=== PATIENT | female | born 1970 | race Caucasian/White ===

== ENCOUNTER 2018-05-23 11:22 | Inpatient (IN) | payer MEDICAID ==
[~2018-05-23] VITALS: Ht 152.4 cm; Wt 104.3 kg
[~2018-05-23 11:22] MED LIST: ACETAMINOPHEN-1 EAC1 ORAL; LEVAQUIN500 MG ORAL; METRONIDAZOLE500 MG ORAL; NKM; TRAMADOL HCL50 MG ORAL
[2018-05-23 11:40] VITALS: BP 149/86
[2018-05-23] MEDS ORDERED: Sodium Chloride 500ML 500 ML IV ONE (11:40)
[2018-05-23] MEDS ORDERED: Morphine Sulfate 4mg/ml Inj (IV/IM USE ONLY) IVP ONE (11:45)
[2018-05-23] MEDS ORDERED: Isovue-300 100ml vial INJ PRN (11:45)
[2018-05-23 12:07] LABS: APPEARANCE,URINE CLOUDY; BILIRUBIN, URINE NEGATIVE (NEGATIVE); COLOR,URINE PALE YELLOW; GLUCOSE, URINE (UA) NEGATIVE (NEGATIVE); KETONES,URINE NEGATIVE (NEGATIVE); LEUKOCYTE ESTERASE ,URINE 3+ (NEGATIVE); NITRITE,URINE NEGATIVE (NEGATIVE); PH,URINE 6 (4.5-8.0); PROTEIN,URINE 4+ (NEGATIVE); UROBILINOGEN,URINE NORMAL MG/DL (0.0-1.0)
[2018-05-23 12:08] LABS: EOSINOPHILS % (AUTO) 1.9 % (0.0-3.0); HEMATOCRIT 37.4 % (37.0-47.0); HEMOGLOBIN 11.9 G/DL (12.0-16.0); LYMPHOCYTES % (AUTO) 26.1 % (20.0-45.0); MEAN CORPUSCULAR VOLUME 76 FL (80-99); MONOCYTES % (AUTO) 6.2 % (1.0-10.0); NEUTROPHILS % (AUTO) 64.8 % (45.0-75.0); PLATELET COUNT 467 K/UL (150-450); RED BLOOD COUNT 4.89 M/UL (4.20-5.40); RED CELL DISTRIBUTION WIDTH 15.1 % (11.6-14.8); WHITE BLOOD COUNT 7.4 K/UL (4.8-10.8)
[2018-05-23 12:18] LABS: ANION GAP 7 mmol/L (5-15); BLOOD UREA NITROGEN 20 mg/dL (7-18); CARBON DIOXIDE 26 MMOL/L (21-32); CHLORIDE 103 MMOL/L (98-107); POTASSIUM 4.4 MMOL/L (3.5-5.1); SODIUM 136 MMOL/L (136-145)
[2018-05-23 12:26] LABS: ALANINE AMINOTRANSFERASE 16 U/L (12-78); ALBUMIN 2.5 G/DL (3.4-5.0); ALBUMIN/GLOBULIN RATIO 0.4 (1.0-2.7); ALKALINE PHOSPHATASE 104 U/L (46-116); ASPARTATE AMINO TRANSFERASE 17 U/L (15-37); BILIRUBIN,TOTAL < 0.1 MG/DL (0.2-1.0)
[2018-05-23] MEDS ORDERED: cefTRIAXone 1 GM in NS 55 ML IVPB ONE (12:45)
[2018-05-23 13:40] VITALS: BP 144/74
--- NOTE | 2018-05-23 14:39 | Emergency Room Report ---
History of Present Illness General Chief Complaint: Abdominal Pain Source: Patient Present Illness HPI 48-year-old female presents ED for evaluation. Patient states she is having lower abdominal pain which started 2 days ago. Sharp, 8 out of 10, localized left lower quadrant. Also complaining of dysuria. History of spina bifida and is wheelchair-bound. Has neurogenic bladder and has to self catheterize. Has had frequent urinary infections in the past. Denies fevers or chills. Denies nausea or vomiting. No other aggravating relieving factors. Denies any other associated symptoms Allergies: Coded Allergies: PENICILLINS (Unverified Allergy, Unknown, 02/07/16) Tolerates cefazolin, ceftriaxone, cefepime SULFAMETHOXAZOLE (Unverified Allergy, Unknown, 05/04/14) TETRACYCLINES (Unverified Allergy, Unknown, 05/04/14) TRIMETHOPRIM (Unverified Allergy, Unknown, 05/04/14) Patient History Past Medical History: other - spina bifida Past Surgical History: other - foot amputation Pertinent Family History: none Social History: Denies: smoking, alcohol use, drug use Now: No Immunizations: UTD Reviewed Nursing Documentation: PMH: Agreed; PSxH: Agreed Nursing Documentation-PMH Past Medical History: No History, Except For Hx Cardiac Problems: No Hx Cancer: No Hx Neurological Problems: No Review of Systems All Other Systems: negative except mentioned in HPI Physical Exam Vital Signs Date Time Temp Pulse Resp B/P (MAP) Pulse Ox O2 Delivery O2 Flow Rate FiO2 05/23/18 11:33 97.5 85 20 149/86 100 Room Air Sp02 EP Interpretation: reviewed, normal General Appearance: no apparent distress, alert, GCS 15, non-toxic, obese Head: normocephalic Eyes: bilateral eye normal inspection, bilateral eye PERRL ENT: normal ENT inspection Neck: normal inspection Respiratory: chest non-tender, lungs clear, normal breath sounds, speaking full sentences Cardiovascular #1: regular rate, rhythm, no edema Gastrointestinal: normal bowel sounds, soft, non-distended, no guarding, no rebound, tenderness - LLQ Rectal: deferred Genitourinary: no CVA tenderness Musculoskeletal: back normal Neurologic: alert, oriented x3, responsive, motor strength/tone normal, sensory intact, speech normal Psychiatric: normal inspection Skin: normal inspection Lymphatic: normal inspection Medical Decision Making Diagnostic Impression: Primary Impression: Pyelonephritis ER Course Hospital Course 48 yo F presents with dysuria. h/o self catheterization, LLQ pain Differential diagnoses include: UTI, cystitis, pyelonephritis Clinical course Patient placed on stretcher. After initial history and physical I ordered UA, labs, IV fluids, pain meds, CT labs - no leukocytosis noted, hb/hematocrit stable, electrolytes okay, UA grossly positive CT A/P - L sided hydronephrosis/hydroureter. findings consistent with pyelonephritis. patient has history of pyelonephritis. h/o catherization - likely multi drug resistant. given IV rocephin here Case discussed with Dr. Britton and he agreed to accept the patient to his service for further care and support Diagnosis - pyelonephritis Admitted to floor in serious condition Labs Test 05/23/18 11:50 White Blood Count 7.4 K/UL (4.8-10.8) Red Blood Count 4.89 M/UL (4.20-5.40) Hemoglobin 11.9 G/DL (12.0-16.0) Hematocrit 37.4 % (37.0-47.0) Mean Corpuscular Volume 76 FL (80-99) Mean Corpuscular Hemoglobin 24.2 PG (27.0-31.0) Mean Corpuscular Hemoglobin Concent 31.7 G/DL (32.0-36.0) Red Cell Distribution Width 15.1 % (11.6-14.8) Platelet Count 467 K/UL (150-450) Mean Platelet Volume 6.7 FL (6.5-10.1) Neutrophils (%) (Auto) 64.8 % (45.0-75.0) Lymphocytes (%) (Auto) 26.1 % (20.0-45.0) Monocytes (%) (Auto) 6.2 % (1.0-10.0) Eosinophils (%) (Auto) 1.9 % (0.0-3.0) Basophils (%) (Auto) 1.0 % (0.0-2.0) Urine Color Pale yellow Urine Appearance Cloudy Urine pH 6 (4.5-8.0) Urine Specific [place] 1.010 (1.005-1.035) Urine Protein 4+ (NEGATIVE) Urine Glucose (UA) Negative (NEGATIVE) Urine Ketones Negative (NEGATIVE) Urine Blood 2+ (NEGATIVE) Urine Nitrite Negative (NEGATIVE) Urine Bilirubin Negative (NEGATIVE) Urine Urobilinogen Normal MG/DL (0.0-1.0) Urine Leukocyte Esterase 3+ (NEGATIVE) Urine RBC 10-15 /HPF (0 - 2) Urine WBC Tntc /HPF (0 - 2) Urine Squamous Epithelial Cells Few /LPF (NONE/OCC) Urine Bacteria Moderate /HPF (NONE) Sodium Level 136 MMOL/L (136-145) Potassium Level 4.4 MMOL/L (3.5-5.1) Chloride Level 103 MMOL/L (98-107) Carbon Dioxide Level 26 MMOL/L (21-32) Anion Gap 7 mmol/L (5-15) Blood Urea Nitrogen 20 mg/dL (7-18) Creatinine 1.0 MG/DL (0.55-1.30) Estimat Glomerular Filtration Rate 59.2 mL/min (>60) Glucose Level 92 MG/DL (74-106) Calcium Level 9.0 MG/DL (8.5-10.1) Total Bilirubin < 0.1 MG/DL (0.2-1.0) Aspartate Amino Transf (AST/SGOT) 17 U/L (15-37) Alanine Aminotransferase (ALT/SGPT) 16 U/L (12-78) Alkaline Phosphatase 104 U/L (46-116) Total Protein 8.5 G/DL (6.4-8.2) Albumin 2.5 G/DL (3.4-5.0) Globulin 6.0 g/dL Albumin/Globulin Ratio 0.4 (1.0-2.7) Lipase 125 U/L (73-393) CT/MRI/US Diagnostic Results CT/MRI/US Diagnostic Results : Imaging Test Ordered: CT A/P Impression L sided hydronephrosis and hydroureter. streaking artifact due to body habitus Last Vital Signs Date Time Temp Pulse Resp B/P (MAP) Pulse Ox O2 Delivery O2 Flow Rate FiO2 05/23/18 12:40 97.6 05/23/18 11:40 82 16 Room Air 05/23/18 11:40 149/86 100 Status: improved Disposition: ADMITTED INPATIENT Condition: Serious Referrals: NOT CHOSEN IPA/,REFERRING (PCP) Evin Ramirez MD May 23, 2018 14:39
[2018-05-23] MEDS ORDERED: NORVASC10 MG ORAL (14:58)
[2018-05-23 15:36] VITALS: BP 143/86
--- NOTE | 2018-05-23 16:25 | Diagnostic Imaging Report ---
EXAM: CT Abdomen and Pelvis With Intravenous Contrast CLINICAL HISTORY: ABD PAIN TECHNIQUE: Axial computed tomography images of the abdomen and pelvis with intravenous contrast. CTDI is 8.15 mGy and DLP is 479 mGy-cm. One or more of the following dose reduction techniques were used: automated exposure control, adjustment of the mA and/or kV according to patient size, use of iterative reconstruction technique. COMPARISON: CT abdomen and pelvis dated 10/02/15. FINDINGS: Limitations: Been hardening artifact related to large body habitus in contact with the scanner gantry, which degrades evaluation in the lower abdomen and the pelvis. Lung bases: Subsegmental atelectasis in the dependent bases. ABDOMEN: Liver: Unremarkable. No mass. Gallbladder and bile ducts: Unremarkable. No calcified stones. No ductal dilation. Pancreas: Tiny millimetric hypodensities in the uncinate process, possibly interdigitated fat versus tiny cysts, unchanged. No mass. No ductal dilation. Spleen: Unremarkable. No splenomegaly. Adrenals: Unremarkable. No mass. Kidneys and ureters: Left renal cortical scarring, unchanged. Mild left hydronephrosis and hydroureter. No radiodense renal stone. No radiodense stone in the proximal left ureter. Distal left ureter is not well seen due to image artifact. Stomach and bowel: Unremarkable. No obstruction. No mucosal thickening. PELVIS: Appendix: No findings to suggest acute appendicitis. Bladder: Avendano catheter in the decompressed urinary bladder. Reproductive: Stable appearance of calcified uterine fibroid. ABDOMEN and PELVIS: Intraperitoneal space: Unremarkable. No free air. No significant fluid collection. Bones/joints: No acute fracture. No dislocation. Soft tissues: Small fat-containing umbilical hernia. Vasculature: Unremarkable. No abdominal aortic aneurysm. Lymph nodes: Unremarkable. No enlarged lymph nodes. IMPRESSION: 1. Beam hardening artifact related to large body habitus in contact with the scanner gantry, which degrades evaluation in the lower abdomen and the pelvis. 2. Left renal cortical scarring, unchanged. 3. Mild left hydronephrosis and hydroureter. No visible renal or proximal ureteral stone. Distal left ureter is not well seen due to image artifact. 4. Small fat-containing umbilical hernia.
[2018-05-23 20:00] VITALS: BP 125/70
[2018-05-23] MEDS: Heparin 5000 units/ml inj SUBQ SCH (20:19)
[2018-05-23] MEDS: Morphine Sulfate 2mg/ml Inj IVP PRN (20:21)
[2018-05-24] VITALS: BP 106/60
[2018-05-24 04:00] VITALS: BP 114/66
[2018-05-24 07:09] LABS: BASOPHILS % (AUTO) 0.7 % (0.0-2.0); EOSINOPHILS % (AUTO) 3.2 % (0.0-3.0); HEMATOCRIT 37.1 % (37.0-47.0); HEMOGLOBIN 11.5 G/DL (12.0-16.0); LYMPHOCYTES % (AUTO) 42.4 % (20.0-45.0); MEAN CORPUSCULAR VOLUME 77 FL (80-99); MONOCYTES % (AUTO) 5.5 % (1.0-10.0); NEUTROPHILS % (AUTO) 48.3 % (45.0-75.0); PLATELET COUNT 471 K/UL (150-450); RED BLOOD COUNT 4.85 M/UL (4.20-5.40); RED CELL DISTRIBUTION WIDTH 15.6 % (11.6-14.8)
[2018-05-24 07:28] LABS: ANION GAP 7 mmol/L (5-15); BLOOD UREA NITROGEN 19 mg/dL (7-18); CALCIUM 8.8 MG/DL (8.5-10.1); CARBON DIOXIDE 27 MMOL/L (21-32); CHLORIDE 105 MMOL/L (98-107); CREATININE 0.9 MG/DL (0.55-1.30); POTASSIUM 3.9 MMOL/L (3.5-5.1); SODIUM 138 MMOL/L (136-145)
[2018-05-24 08:00] VITALS: BP 99/49
[2018-05-24] MEDS: Heparin 5000 units/ml inj SUBQ SCH ×2 (08:34→20:54)
--- NOTE | 2018-05-24 09:29 | History and Physical ---
History of Present Illness General Date patient seen: May 24, 2018 Time patient seen: 09:19 Reason for Hospitalization: Abdominal Pain Present Illness HPI Ms Cantu is a very pleasant 48 yo female with h/o htn presents with complaints of left flank pain. Patient states she started to feel this 2 days ago with associated burning urination. Denies any fevers/chills, admits to nausea/ vomiting. Denies diarrhea/constipation. States she has had these sx in the past , very long ago. Denies any hematuria. social hx: denies smoking, drinking alcohol or drug use fam hx: reviewed, denies any sig past family history code status: reviewed, full code. Allergies: Coded Allergies: PENICILLINS (Unverified Allergy, Unknown, 02/07/16) Tolerates cefazolin, ceftriaxone, cefepime SULFAMETHOXAZOLE (Unverified Allergy, Unknown, 05/04/14) TETRACYCLINES (Unverified Allergy, Unknown, 05/04/14) TRIMETHOPRIM (Unverified Allergy, Unknown, 05/04/14) Medication History Scheduled Amlodipine Besylate (Norvasc), 10 MG ORAL DAILY, (Reported) Metronidazole* (Flagyl*), 500 MG ORAL EVERY 8 HOURS No Known Medications* (NKM - No Known Medications*), 0 ., (Reported) Scheduled PRN Acetaminophen With Codeine (T#3) (Tylenol #3 Tab*), 2 TAB ORAL EVERY 4 HOURS PRN for For Pain, (Reported) Patient History History Provided By: Patient Healthcare decision maker Resuscitation status Full Code Advanced Directive on File Review of Systems Constitutional: Reports: weakness; Denies: no symptoms, see HPI, chills, sweats , fever, malaise, other Eye: Denies: no symptoms, see HPI, eye pain, blurred vision, tearing, double vision, nose pain, nose congestion, acuity changes, discharge, other ENT: Denies: no symptoms, see HPI, ear pain, ear discharge, nose pain, nose congestion, throat pain, throat swelling, mouth pain, hearing loss, nasal discharge, other Respiratory: Denies: no symptoms, see HPI, cough, orthopnea, shortness of breath, stridor, wheezing, LOGAN, sputum, other Cardiovascular: Denies: no symptoms, see HPI, chest pain, edema, palpitations, syncope, PND, other Gastrointestinal: Reports: abdominal pain - left flank pain; Denies: no symptoms, see HPI, constipation, diarrhea, nausea, vomiting, melena, hematemesis , other Genitourinary: Reports: dysuria, frequency, pain; Denies: no symptoms, see HPI , discharge, hematuria, retention, incontinence, urgency, vag bleed/dc, other Musculoskeletal: Denies: no symptoms, see HPI, back pain, gout, joint pain, joint swelling, muscle pain, muscle stiffness, other Skin: Denies: no symptoms, see HPI, rash, change in color, change in hair/nails , dryness, lesions, other Psychiatric: Denies: no symptoms, see HPI, prior hx, anxiety, depressed feelings, emotional problems, SI, HI, hallucinations, other Neurological: Denies: no symptoms, see HPI, headache, numbness, paresthesia, seizure, tingling, tremors, focal weakness, syncope, dizziness, other Endocrine: Denies: no symptoms, see HPI, excessive sweating, flushing, intolerance to temperature, increased thirst, increased urine, unexplained weight loss, other Hematologic/Lymphatic: Denies: no symptoms, see HPI, anemia, blood clots, easy bleeding, easy bruising, swollen glands, diathesis, other Physical Exam General Appearance: WD/WN, no apparent distress Lines, tubes and drains: peripheral HEENT: normocephalic, atraumatic, anicteric, mucous membranes moist, PERRL Neck: non-tender, normal alignment, supple, normal inspection Respiratory/Chest: chest wall non-tender, lungs clear, normal breath sounds, no respiratory distress, no accessory muscle use Cardiovascular/Chest: normal peripheral pulses, normal rate, regular rhythm Abdomen: normal bowel sounds, non tender, soft, no organomegaly, no mass, other - left costophrenic angle ttp+ Extremities: normal range of motion, non-tender, normal inspection Skin Exam: normal pigmentation, warm/dry, cyanotic 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, no motor/sensory deficits, alert, oriented x 3 Last 24 Hour Vital Signs Date Time Temp Pulse Resp B/P (MAP) Pulse Ox O2 Delivery O2 Flow Rate FiO2 05/24/18 08:30 71 114/66 05/24/18 08:00 Room Air 05/24/18 08:00 97.4 76 20 99/49 (66) 95 05/24/18 04:00 97.0 71 19 114/66 (82) 95 05/24/18 00:00 97.9 76 19 106/60 (75) 96 05/23/18 21:00 Room Air 05/23/18 20:00 97.7 80 18 125/70 (88) 97 05/23/18 18:14 Room Air 05/23/18 16:55 98.0 77 16 148/90 100 Room Air 05/23/18 15:36 98.0 74 16 143/86 100 Room Air 05/23/18 13:40 98.0 73 16 144/74 100 Room Air 05/23/18 12:40 97.6 05/23/18 11:40 82 16 Room Air 05/23/18 11:40 97.6 82 16 149/86 100 Room Air 05/23/18 11:33 97.5 85 20 149/86 100 Room Air Intake and Output 05/23/18 05/24/18 19:00 07:00 Intake Total 2992 ml Output Total 150 ml 1150 ml Balance -150 ml 1842 ml Intake Oral 1040 ml IV Total 1952 ml Output Urine Total 150 ml 1150 ml # Voids 1 3 Laboratory Tests Test 05/23/18 11:50 05/24/18 06:10 White Blood Count 7.4 K/UL (4.8-10.8) 6.0 K/UL (4.8-10.8) Red Blood Count 4.89 M/UL (4.20-5.40) 4.85 M/UL (4.20-5.40) Hemoglobin 11.9 G/DL (12.0-16.0) L 11.5 G/DL (12.0-16.0) L Hematocrit 37.4 % (37.0-47.0) 37.1 % (37.0-47.0) Mean Corpuscular Volume 76 FL (80-99) L 77 FL (80-99) L Mean Corpuscular Hemoglobin 24.2 PG (27.0-31.0) L 23.7 PG (27.0-31.0) L Mean Corpuscular Hemoglobin Concent 31.7 G/DL (32.0-36.0) L 31.0 G/DL (32.0-36.0) L Red Cell Distribution Width 15.1 % (11.6-14.8) H 15.6 % (11.6-14.8) H Platelet Count 467 K/UL (150-450) H 471 K/UL (150-450) H Mean Platelet Volume 6.7 FL (6.5-10.1) 6.3 FL (6.5-10.1) L Neutrophils (%) (Auto) 64.8 % (45.0-75.0) 48.3 % (45.0-75.0) Lymphocytes (%) (Auto) 26.1 % (20.0-45.0) 42.4 % (20.0-45.0) Monocytes (%) (Auto) 6.2 % (1.0-10.0) 5.5 % (1.0-10.0) Eosinophils (%) (Auto) 1.9 % (0.0-3.0) 3.2 % (0.0-3.0) H Basophils (%) (Auto) 1.0 % (0.0-2.0) 0.7 % (0.0-2.0) Urine Color Pale yellow Urine Appearance Cloudy Urine pH 6 (4.5-8.0) Urine Specific [place] 1.010 (1.005-1.035) Urine Protein 4+ (NEGATIVE) H Urine Glucose (UA) Negative (NEGATIVE) Urine Ketones Negative (NEGATIVE) Urine Blood 2+ (NEGATIVE) H Urine Nitrite Negative (NEGATIVE) Urine Bilirubin Negative (NEGATIVE) Urine Urobilinogen Normal MG/DL (0.0-1.0) Urine Leukocyte Esterase 3+ (NEGATIVE) H Urine RBC 10-15 /HPF (0 - 2) H Urine WBC Tntc /HPF (0 - 2) H Urine Squamous Epithelial Cells Few /LPF (NONE/OCC) Urine Bacteria Moderate /HPF (NONE) H Sodium Level 136 MMOL/L (136-145) 138 MMOL/L (136-145) Potassium Level 4.4 MMOL/L (3.5-5.1) 3.9 MMOL/L (3.5-5.1) Chloride Level 103 MMOL/L (98-107) 105 MMOL/L (98-107) Carbon Dioxide Level 26 MMOL/L (21-32) 27 MMOL/L (21-32) Anion Gap 7 mmol/L (5-15) 7 mmol/L (5-15) Blood Urea Nitrogen 20 mg/dL (7-18) H 19 mg/dL (7-18) H Creatinine 1.0 MG/DL (0.55-1.30) 0.9 MG/DL (0.55-1.30) Estimat Glomerular Filtration Rate 59.2 mL/min (>60) > 60 mL/min (>60) Glucose Level 92 MG/DL (74-106) 83 MG/DL (74-106) Calcium Level 9.0 MG/DL (8.5-10.1) 8.8 MG/DL (8.5-10.1) Total Bilirubin < 0.1 MG/DL (0.2-1.0) L Aspartate Amino Transf (AST/SGOT) 17 U/L (15-37) Alanine Aminotransferase (ALT/SGPT) 16 U/L (12-78) Alkaline Phosphatase 104 U/L (46-116) Total Protein 8.5 G/DL (6.4-8.2) H Albumin 2.5 G/DL (3.4-5.0) L Globulin 6.0 g/dL Albumin/Globulin Ratio 0.4 (1.0-2.7) L Lipase 125 U/L (73-393) Height (Feet): 5 Height (Inches): 0.00 Weight (Pounds): 230 Medications Current Medications Medications (Trade) Dose Ordered Sig/Drake Route PRN Reason Start Time Stop Time Status Last Admin Dose Admin Amlodipine Besylate (Norvasc) 10 mg DAILY ORAL 05/24/18 09:00 06/23/18 08:59 05/24/18 08:30 Ceftriaxone Sodium 1 gm/ Dextrose 55 ml @ 110 mls/hr Q24H IVPB 05/24/18 13:00 05/31/18 12:59 Heparin Sodium (Porcine) (Heparin 5000 units/ml) 5,000 units EVERY 12 HOURS SUBQ 05/23/18 21:00 06/22/18 20:59 05/24/18 08:34 Iopamidol (Isovue-300 100ml) 100 ml NOW PRN INJ Radiology Procedure 05/23/18 11:45 Morphine Sulfate (Morphine Sulfate) 1 mg Q6H PRN IVP pain 05/23/18 18:00 05/30/18 17:59 11/24/18 20:21 Sodium Chloride 1,000 ml @ 150 mls/hr Q6H40M IV 05/23/18 17:52 06/22/18 17:51 05/24/18 08:30 Assessment/Plan Problem List: (1) Pyelonephritis Assessment & Plan: abx, ceftriaxone ivf ct abd/pelvis reviewed, Mild left hydronephrosis and hydroureter. No visible renal or proximal ureteral stone. Distal left ureter is not well seen due to image artifact. check renal US ICD Codes: N12 - Tubulo-interstitial nephritis, not specified as acute or chronic SNOMED: 18549002 (2) JAMES (acute kidney injury) Assessment & Plan: Cr 1.0 from 0.9 left hydronephrosis noted on ct checl US renal IVF monitor avoid nephrotoxic meds ICD Codes: N17.9 - Acute nontraumatic kidney injury SNOMED: 30438520 (3) Hydronephrosis Assessment & Plan: check renal US for possible stone ICD Codes: N13.30 - Unspecified hydronephrosis SNOMED: 92804900 Qualifiers: Qualified Codes: N13.30 - Unspecified hydronephrosis (4) Flank pain, acute Assessment & Plan: due to pyelo pain control left flank pain renal US pending ICD Codes: R10.9 - Unspecified abdominal pain SNOMED: 7897360, 299279562 (5) Essential hypertension Assessment & Plan: resume home amlodipine stable ICD Codes: I10 - Essential (primary) hypertension SNOMED: 88411385 Status: stable Assessment/Plan ppx: heparin, scd diet: regular Lluvia Gresham MD May 24, 2018 09:29
[2018-05-24] MEDS: Morphine Sulfate 2mg/ml Inj IVP PRN (09:48)
[2018-05-24 12:00] VITALS: BP 123/71
[2018-05-24] MEDS: cefTRIAXone 1 GM in D5W 55 ML IVPB SCH (12:32)
[2018-05-24] MEDS ORDERED: Tubing IV Secondary IV ONE (14:52)
[2018-05-24 16:05] VITALS: BP 129/79
[2018-05-24 20:00] VITALS: BP 138/77
[2018-05-25] VITALS: BP 127/70
[2018-05-25 04:00] VITALS: BP 128/72
[2018-05-25 08:00] VITALS: BP 125/75
[2018-05-25] MEDS: Heparin 5000 units/ml inj SUBQ SCH ×2 (08:37→20:28)
[2018-05-25] MEDS: Morphine Sulfate 2mg/ml Inj IVP PRN (08:42)
--- NOTE | 2018-05-25 09:37 | General Progress Note ---
Assessment/Plan Problem List: (1) Pyelonephritis Assessment & Plan: abx, ceftriaxone ivf ct abd/pelvis reviewed, Mild left hydronephrosis and hydroureter. No visible renal or proximal ureteral stone. Distal left ureter is not well seen due to image artifact. check renal US still pending ICD Codes: N12 - Tubulo-interstitial nephritis, not specified as acute or chronic SNOMED: 51970593 (2) JAMES (acute kidney injury) Assessment & Plan: Cr 1.0 from 0.9 left hydronephrosis noted on ct checl US renal IVF monitor avoid nephrotoxic meds ICD Codes: N17.9 - Acute nontraumatic kidney injury SNOMED: 75499621 (3) Hydronephrosis Assessment & Plan: check renal US for possible stone ICD Codes: N13.30 - Unspecified hydronephrosis SNOMED: 25859747 Qualifiers: Qualified Codes: N13.30 - Unspecified hydronephrosis (4) Flank pain, acute Assessment & Plan: due to pyelo pain control left flank pain renal US pending ICD Codes: R10.9 - Unspecified abdominal pain SNOMED: 1771265, 802093391 (5) Essential hypertension Assessment & Plan: resume home amlodipine stable ICD Codes: I10 - Essential (primary) hypertension SNOMED: 01968835 Status: stable Assessment/Plan ppx: heparin, scd diet: regular Subjective Constitutional: Denies: no symptoms, chills, diaphoresis, fever, malaise, weakness, other HEENT: Denies: no symptoms, eye pain, blurred vision, tearing, double vision, ear pain, ear discharge, nose pain, nose congestion, throat pain, throat swelling, mouth pain, mouth swelling, other Cardiovascular: Denies: no symptoms, chest pain, edema, irregular heart rate, lightheadedness, palpitations, syncope, other Respiratory: Denies: no symptoms, cough, orthopnea, shortness of breath, SOB with excertion, SOB at rest, sputum, stridor, wheezing, other Gastrointestinal/Abdominal: Denies: no symptoms, abdomen distended, abdominal pain, black stools, tarry stools, blood in stool, constipated, diarrhea, difficulty swallowing, nausea, poor appetite, poor fluid intake, rectal bleeding , vomiting, other Genitourinary: Reports: flank pain Neurologic/Psychiatric: Denies: no symptoms, anxiety, depressed, emotional problems, headache, numbness, paresthesia, pre-existing deficit, seizure, tingling, tremors, weakness, other Endocrine: Denies: no symptoms, excessive sweating, flushing, intolerance to cold, intolerance to heat, increased hunger, increased thirst, increased urine, unexplained weight gain, unexplained weight loss, other Hematologic/Lymphatic: Denies: no symptoms, anemia, easy bleeding, easy bruising, other Allergies: Coded Allergies: PENICILLINS (Unverified Allergy, Unknown, 02/07/16) Tolerates cefazolin, ceftriaxone, cefepime SULFAMETHOXAZOLE (Unverified Allergy, Unknown, 05/04/14) TETRACYCLINES (Unverified Allergy, Unknown, 05/04/14) TRIMETHOPRIM (Unverified Allergy, Unknown, 05/04/14) Subjective f/u flank pain, pyelo - still having flank pain but improving with pain meds denies any n/v no acute events overnight pending renal US still Objective Last 24 Hour Vital Signs Date Time Temp Pulse Resp B/P (MAP) Pulse Ox O2 Delivery O2 Flow Rate FiO2 05/25/18 08:35 69 125/75 05/25/18 08:00 97.3 69 18 125/75 (92) 97 05/25/18 04:00 97.0 67 17 128/72 (90) 97 05/25/18 00:00 97.6 88 17 127/70 (89) 96 05/24/18 21:00 Room Air 05/24/18 20:00 97.9 74 19 138/77 (97) 93 05/24/18 16:05 97.2 92 18 129/79 (96) 9 05/24/18 12:00 97.5 70 20 123/71 (88) 9 Intake and Output 05/24/18 05/25/18 19:00 07:00 Intake Total 2760 ml 1500 ml Output Total 1600 ml 1300 ml Balance 1160 ml 200 ml Intake Oral 1280 ml IV Total 1480 ml 1500 ml Output Urine Total 1600 ml 1300 ml # Voids 3 2 # Bowel Movements 1 Height (Feet): 5 Height (Inches): 0.00 Weight (Pounds): 230 General Appearance: no apparent distress, alert EENT: PERRL/EOMI, normal ENT inspection, TMs normal Neck: non-tender, normal alignment, supple, normal inspection Cardiovascular: normal peripheral pulses, normal rate, regular rhythm Respiratory/Chest: chest wall non-tender, lungs clear, normal breath sounds, no respiratory distress, no accessory muscle use Abdomen: normal bowel sounds, non tender, soft, no organomegaly, no mass, other - +CVA TTP Extremities: normal range of motion, non-tender, normal inspection 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
--- NOTE | 2018-05-25 10:30 | Diagnostic Imaging Report ---
Indication: Abdominal pain Technique: Grayscale and duplex images of the kidneys, retroperitoneum, and bladder were obtained. Comparison: CT scan dated 05/23/2018 Findings: Exam is limited due to patient body habitus. Right kidney measures 9.9 cm in length. Left kidney measures 10.7 cm in length. Both kidneys demonstrate normal echogenicity. There is mild left hydronephrosis. No focal abnormality. Normal inferior vena cava. Bladder demonstrates 193 mL postvoid residual. Impression: Mild left hydronephrosis, also described on prior CT scan, etiology not demonstrated 193 mL postvoid bladder residual.
[2018-05-25 12:00] VITALS: BP 132/75
[2018-05-25] MEDS: cefTRIAXone 1 GM in D5W 55 ML IVPB SCH (13:00)
[2018-05-25 16:00] VITALS: BP 128/69
[2018-05-25 20:16] VITALS: BP 132/74
[2018-05-26] VITALS: BP 130/76
[2018-05-26 04:16] VITALS: BP 114/57
[2018-05-26 08:00] VITALS: BP 138/82
[2018-05-26] MEDS ORDERED: LEVOFLOXACIN750 MG ORAL (08:27)
--- NOTE | 2018-05-26 08:31 | Discharge Summary ---
Discharge Summary Hospital Course Date of Admission May 23, 2018 at 14:44 Date of Discharge 05/26/18 Admitting Diagnosis Pyelonephritis HPI Zaira Cantu is a 48 year old female who was admitted on May 23, 2018 at 14:44 for Pyelonephritis Hospital Course Ms Cantu is a very pleasant 48 yo female with h/o htn presents with complaints of left flank pain. Patient states she started to feel this 2 days ago with associated burning urination. Denies any fevers/chills, admits to nausea/ vomiting. Denies diarrhea/constipation. States she has had these sx in the past , very long ago. Denies any hematuria. patient diagnosed with pyelonephritis per CT imaging. started on cftx. Ucx grew pseudomonas, sensitive for levofloxacin. patient pain improved with abx. patient stable for dc. dc home dc home f/u with pcp and urology in1 week I have spent over 46 minutes in counseling and arranging discharge for patient along with of 30 minutes of face to face time patient is aware of dispo plan and understands to follow up with urologist, pcp and to continue with abx for remainder of duration prescribed. Physical exam: General Appearance: WD/WN, no apparent distress Lines, tubes and drains: peripheral HEENT: normocephalic, atraumatic, anicteric, mucous membranes moist, PERRL Neck: non-tender, normal alignment, supple, normal inspection Respiratory/Chest: chest wall non-tender, lungs clear, normal breath sounds, no respiratory distress, no accessory muscle use Cardiovascular/Chest: normal peripheral pulses, normal rate, regular rhythm Abdomen: normal bowel sounds, non tender, soft, no organomegaly, no mass, other - left costophrenic angle ttp+ Extremities: normal range of motion, non-tender, normal inspection Skin Exam: normal pigmentation, warm/dry, cyanotic Neurologic: 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 0 ., 0 Refills Discharge Condition Upon Discharge: stable Discharge Disposition Patient was discharged to Discharge Diagnoses: (1) Flank pain, acute (2) Essential hypertension (3) Hydronephrosis (4) Pyelonephritis Lluvia Gresham MD May 26, 2018 08:31
[2018-05-26 10:02] VITALS: BP 133/83
[2018-05-26 10:11] VITALS: BP 133/83
[2018-05-26] MEDS: Heparin 5000 units/ml inj SUBQ SCH (10:13)
== END 2018-05-26 13:30 | disposition home or self-care (01) | DRG 463 ==
LOC: EMR 12:22 → 4E 14:44 → EDBEDREQ 16:12 → EMR 17:05
DX: N12 Tubulo-interstitial nephritis, not specified as acute or chronic (principal); N17.9 Acute kidney failure, unspecified; N13.30 Unspecified hydronephrosis; I10 Essential (primary) hypertension; Z88.0 Allergy status to penicillin; Z88.2 Allergy status to sulfonamides; Z88.8 Allergy status to other drugs, medicaments and biological substances; B96.5 Pseudomonas (aeruginosa) (mallei) (pseudomallei) as the cause of diseases classified elsewhere
CPT/HCPCS: 36415; 74177; 76770; 80048; 80053; 81003; 83690; 85025; 87086; 87181; 96365; 96375; 99285